=== PATIENT | female | born 1960 | race Caucasian/White ===

== ENCOUNTER 2017-08-21 10:58 | Inpatient (IN) | payer BC ==
[~2017-08-21] VITALS: Ht 154.9 cm; Wt 102.8 kg
[2017-08-21 12:03] LABS: HEMOGLOBIN 13.1 G/DL (11.9-15.5); MCH 31.5 PG (29.0-34.0); MCHC 32.8 G/DL (30.0-36.0); MCV 96.2 FL (83-99); PLATELET COUNT 214 K/uL (156-360); RBC DIS.WIDTH-CV 13.2 % (11.8-14.6); RBC DIS.WIDTH-SD 46.9 % (39-53); RED BLOOD COUNT 4.16 M/uL (3.80-5.20); WHITE BLOOD COUNT 11.6 K/uL (4.1-10.2)
[2017-08-21 12:17] LABS: ALBUMIN 3.5 g/dL (3.2-4.8); CHLORIDE 103 mEq/L (99-109); POTASSIUM 4.1 mEq/L (3.7-5.4); SODIUM 137 mEq/L (136-147)
[2017-08-21 12:19] LABS: GLUCOSE 121 mg/dL (70-99); TOTAL PROTEIN 6.5 g/dL (6.4-8.3)
[2017-08-21 12:21] LABS: TOTAL BILIRUBIN 0.6 mg/dL (0.0-1.0)
[2017-08-21 12:23] LABS: ALKALINE PHOSPHATASE 78 IU/L (3-129); CREATININE 1.5 mg/dL (0.6-1.3); GFR ESTIMATE (CALCULATED) 38 mL/min/
[2017-08-21 12:24] LABS: UREA NITROGEN (BUN) 11 mg/dL (9-23)
[2017-08-21 12:25] LABS: AST (GOT) 28 IU/L (2-34); TROP-I INTERPRETATION NEGATIVE; TROPONIN-I < 0.01 ng/mL (0.0-0.30)
[2017-08-21 12:26] LABS: ALT (GPT) 28 IU/L (3-49); LIPASE 8 U/L (1.0-51.0)
[2017-08-21] MEDS ORDERED: CELECOXIB200 MG PO (15:04)
[2017-08-21] MEDS ORDERED: OMEPRAZOLE40 M1 PO (15:05)
[2017-08-21] MEDS ORDERED: GABAPENTIN400 MG PO (15:08)
[2017-08-21] MEDS ORDERED: CHLORZOXAZONE500 MG PO (15:10)
[2017-08-21] MEDS ORDERED: VOLTAREN 1% GE100 GM TP (15:13)
[2017-08-21] MEDS ORDERED: TIROSINT125 MCG PO (15:14)
[2017-08-21] MEDS ORDERED: ADVAIR 500/501 DISK IH (15:18)
[2017-08-21] MEDS ORDERED: ESTRADIOL1 EA14 TD (15:18)
[2017-08-21] MEDS ORDERED: BUPROPION XL150 MG PO (15:18)
[2017-08-21] MEDS ORDERED: PROAIR HFA8.5 GM IH (15:19)
[2017-08-21] MEDS ORDERED: MONTELUKAST SOD10 MG PO (15:19)
[2017-08-21] MEDS ORDERED: FEXOFENADINE H180 MG PO (15:20)
[2017-08-21] MEDS ORDERED: NASACORT10.8 ML BOTH NARES (15:20)
[2017-08-21] MEDS ORDERED: CALCIUM 600 +1 EAC2 PO (15:21)
[2017-08-21] MEDS ORDERED: SYSTANE ULTRA 015 ML BOTH EYES (15:21)
[2017-08-21] MEDS ORDERED: CENTRUM WOMEN1 EACH PO (15:21)
[2017-08-21] MEDS ORDERED: MAGNESIUM400 M1 PO (15:22)
[2017-08-21] MEDS ORDERED: L-GLUTAMINE500 M5 PO (15:22)
[2017-08-21] MEDS ORDERED: ADVANCED PROBI625 MG PO (15:22)
[2017-08-21] MEDS ORDERED: CO Q-10100 MG PO (15:24)
[2017-08-21] MEDS ORDERED: OMEGA 3-6-9 11200 MG PO (15:25)
[2017-08-21] MEDS ORDERED: FLAX OIL1000 MG PO (15:26)
[2017-08-21] MEDS ORDERED: 5-HTP100 MG PO (15:26)
[2017-08-21] MEDS ORDERED: CINNAMON PLUS1 EACH PO (15:27)
[2017-08-21 21:05] VITALS: BP 134/89
[2017-08-21 21:14] VITALS: BP 134/89
[2017-08-21 22:00] VITALS: BP 143/76
[2017-08-21 22:34] LABS: APPEARANCE SL.HAZY ((CLEAR)); BILIRUBIN NEGATIVE; BLOOD NEGATIVE; COLOR YELLOW ((YELLOW)); GLUCOSE (STRIP) NEGATIVE; KETONES NEGATIVE; LEUKOCYTES NEGATIVE; NITRITE NEGATIVE; PROTEIN (STRIP) NEGATIVE; SPECIFIC GRAVITY 1.038 (1.000-1.030); UROBILINOGEN 0.2 MG/DL (0.2-1.0)
[2017-08-21 22:40] LABS: BACTERIA RARE /HPF; EPITHELIAL CELLS RARE /HPF; HYALINE CASTS 15-20 /LPF; MUCUS TRACE /LPF; UCUL ADDED? NO; WHITE BLOOD CELLS 0-5 /HPF (0-5)
[2017-08-21 23:00] VITALS: BP 127/67
[2017-08-22] VITALS (20 sets, daily range): BP systolic 109–147; BP diastolic 64–94
[2017-08-22 04:54] LABS: HEMATOCRIT 35.7 % (36.0-46.0); HEMOGLOBIN 11.7 G/DL (11.9-15.5); MCH 31.6 PG (29.0-34.0); MCHC 32.8 G/DL (30.0-36.0); MCV 96.5 FL (83-99); PLATELET COUNT 206 K/uL (156-360); RBC DIS.WIDTH-CV 13.8 % (11.8-14.6); RBC DIS.WIDTH-SD 49.1 % (39-53)
[2017-08-22 05:25] LABS: CHLORIDE 106 mEq/L (99-109); POTASSIUM 4.1 mEq/L (3.7-5.4); SODIUM 137 mEq/L (136-147)
[2017-08-22 05:26] LABS: GLUCOSE 118 mg/dL (70-99)
[2017-08-22 05:30] LABS: GFR ESTIMATE (CALCULATED) > 59 mL/min/
[2017-08-22 05:31] LABS: UREA NITROGEN (BUN) 11 mg/dL (9-23)
[2017-08-23] VITALS (13 sets, daily range): BP systolic 125–166; BP diastolic 73–93
[2017-08-24 03:50] VITALS: BP 120/70
[2017-08-24 06:34] LABS: HEMATOCRIT 35.9 % (36.0-46.0); HEMOGLOBIN 11.5 G/DL (11.9-15.5); MCH 30.7 PG (29.0-34.0); MCV 95.7 FL (83-99); PLATELET COUNT 221 K/uL (156-360); RBC DIS.WIDTH-CV 13.2 % (11.8-14.6); RBC DIS.WIDTH-SD 46.5 % (39-53); RED BLOOD COUNT 3.75 M/uL (3.80-5.20); WHITE BLOOD COUNT 9.4 K/uL (4.1-10.2)
[2017-08-24 06:52] LABS: CHLORIDE 99 MEQ/L (99-109); CREATININE 0.8 MG/DL (0.6-1.3); GFR ESTIMATE (CALCULATED) > 59 mL/min/; GLUCOSE 142 mg/dL (70-99); MAGNESIUM 1.5 mg/dl (1.3-2.7); SODIUM 138 MEQ/L (136-147); UREA NITROGEN (BUN) 8 mg/dL (9-23)
[2017-08-24 08:21] VITALS: BP 141/72
[2017-08-24 11:28] VITALS: BP 191/91
[2017-08-24 15:49] VITALS: BP 130/90
[2017-08-24 16:16] LABS: TROP-I INTERPRETATION NEGATIVE; TROPONIN-I 0.05 ng/mL (0.0-0.30)
[2017-08-24 19:29] VITALS: BP 119/68
[2017-08-24 21:56] LABS: TROP-I INTERPRETATION NEGATIVE; TROPONIN-I 0.05 ng/mL (0.0-0.30)
[2017-08-24 23:37] VITALS: BP 135/73
[2017-08-25 03:43] VITALS: BP 124/76
[2017-08-25 07:25] VITALS: BP 134/73
[2017-08-25 12:14] VITALS: BP 136/72
[2017-08-25 20:16] VITALS: BP 143/81
[2017-08-26 00:36] VITALS: BP 117/69
[2017-08-26 03:57] VITALS: BP 141/68
[2017-08-26 04:47] LABS: HEMATOCRIT 31.5 % (36.0-46.0); HEMOGLOBIN 10.8 G/DL (11.9-15.5); MCH 32.1 PG (29.0-34.0); MCHC 34.3 G/DL (30.0-36.0); MCV 93.8 FL (83-99); PLATELET COUNT 231 K/uL (156-360); RBC DIS.WIDTH-CV 12.8 % (11.8-14.6); RBC DIS.WIDTH-SD 44.2 % (39-53); RED BLOOD COUNT 3.36 M/uL (3.80-5.20); WHITE BLOOD COUNT 9.8 K/uL (4.1-10.2)
[2017-08-26 07:57] VITALS: BP 122/67
[2017-08-26 15:18] VITALS: BP 131/65
[2017-08-26 19:09] VITALS: BP 141/91
[2017-08-26 23:56] VITALS: BP 132/65
[2017-08-27 04:58] VITALS: BP 121/65
[2017-08-27 08:39] VITALS: BP 136/68
[2017-08-27 16:23] VITALS: BP 156/76
[2017-08-27 20:43] VITALS: BP 140/82
[2017-08-28] VITALS (7 sets, daily range): BP systolic 122–162; BP diastolic 63–83
[2017-08-28 10:26] LABS: HEMATOCRIT 34.7 % (36.0-46.0); HEMOGLOBIN 11.6 G/DL (11.9-15.5); MCH 31.8 PG (29.0-34.0); MCHC 33.4 G/DL (30.0-36.0); MCV 95.1 FL (83-99); RBC DIS.WIDTH-CV 12.9 % (11.8-14.6); RBC DIS.WIDTH-SD 45.1 % (39-53); RED BLOOD COUNT 3.65 M/uL (3.80-5.20); WHITE BLOOD COUNT 12.1 K/uL (4.1-10.2)
[2017-08-28 10:38] LABS: CREATININE 0.7 MG/DL (0.6-1.3); GFR ESTIMATE (CALCULATED) > 59 mL/min/; GLUCOSE 191 mg/dL (70-99); POTASSIUM 4.5 MEQ/L (3.7-5.4); UREA NITROGEN (BUN) 14 mg/dL (9-23)
[2017-08-28 10:45] LABS: CHLORIDE 88 MEQ/L (99-109); SODIUM 130 MEQ/L (136-147)
[2017-08-28 11:02] LABS: PLATELET COUNT 400 K/uL (156-360)
[2017-08-29 03:24] VITALS: BP 132/77
[2017-08-29 07:49] VITALS: BP 106/57
[2017-08-29 09:22] LABS: HEMATOCRIT 34.6 % (36.0-46.0); HEMOGLOBIN 11.4 G/DL (11.9-15.5); MCH 31.4 PG (29.0-34.0); MCHC 32.9 G/DL (30.0-36.0); MCV 95.3 FL (83-99); PLATELET COUNT 423 K/uL (156-360); RBC DIS.WIDTH-SD 45.3 % (39-53); RED BLOOD COUNT 3.63 M/uL (3.80-5.20); WHITE BLOOD COUNT 11.3 K/uL (4.1-10.2)
[2017-08-29 09:44] LABS: CHLORIDE 94 MEQ/L (99-109); CREATININE 0.8 MG/DL (0.6-1.3); GFR ESTIMATE (CALCULATED) > 59 mL/min/; GLUCOSE 207 mg/dL (70-99); POTASSIUM 4.2 MEQ/L (3.7-5.4); SODIUM 136 MEQ/L (136-147); UREA NITROGEN (BUN) 14 mg/dL (9-23)
[2017-08-29 11:51] VITALS: BP 125/67
[2017-08-29 15:36] VITALS: BP 138/74
[2017-08-29 19:45] VITALS: BP 165/76
[2017-08-30] VITALS (7 sets, daily range): BP systolic 119–138; BP diastolic 61–82
[2017-08-30 08:14] LABS: CHLORIDE 92 MEQ/L (99-109); CREATININE 0.7 MG/DL (0.6-1.3); GFR ESTIMATE (CALCULATED) > 59 mL/min/; GLUCOSE 166 mg/dL (70-99); POTASSIUM 4.5 MEQ/L (3.7-5.4); SODIUM 134 MEQ/L (136-147); UREA NITROGEN (BUN) 12 mg/dL (9-23)
[2017-08-31 04:00] VITALS: BP 132/64
[2017-08-31 08:14] VITALS: BP 145/69
[2017-08-31 09:17] LABS: HEMATOCRIT 37.1 % (36.0-46.0); HEMOGLOBIN 12.1 G/DL (11.9-15.5); MCH 31.2 PG (29.0-34.0); MCHC 32.6 G/DL (30.0-36.0); MCV 95.6 FL (83-99); PLATELET COUNT 496 K/uL (156-360); RBC DIS.WIDTH-CV 13.2 % (11.8-14.6); RBC DIS.WIDTH-SD 45.8 % (39-53); RED BLOOD COUNT 3.88 M/uL (3.80-5.20); WHITE BLOOD COUNT 15.9 K/uL (4.1-10.2)
[2017-08-31 09:52] LABS: CHLORIDE 93 MEQ/L (99-109); CREATININE 0.7 MG/DL (0.6-1.3); GFR ESTIMATE (CALCULATED) > 59 mL/min/; GLUCOSE 162 mg/dL (70-99); POTASSIUM 4.2 MEQ/L (3.7-5.4); SODIUM 134 MEQ/L (136-147); UREA NITROGEN (BUN) 9 mg/dL (9-23)
[2017-08-31 11:49] VITALS: BP 142/63
[2017-08-31 15:35] VITALS: BP 149/70
[2017-08-31 20:16] VITALS: BP 168/83
[2017-08-31 23:41] VITALS: BP 145/84
[2017-09-01 04:30] VITALS: BP 135/81
[2017-09-01 08:16] VITALS: BP 159/79
[2017-09-01 11:08] VITALS: BP 149/71
[2017-09-01 12:47] LABS: CHLORIDE 91 MEQ/L (99-109); CREATININE 0.7 MG/DL (0.6-1.3); GFR ESTIMATE (CALCULATED) > 59 mL/min/; GLUCOSE 144 mg/dL (70-99); POTASSIUM 4.5 MEQ/L (3.7-5.4); SODIUM 132 MEQ/L (136-147); UREA NITROGEN (BUN) 10 mg/dL (9-23)
[2017-09-01 17:45] VITALS: BP 157/84
[2017-09-01 20:15] VITALS: BP 136/76
[2017-09-02 04:57] VITALS: BP 121/74
[2017-09-02 06:00] LABS: BASOPHIL (%) 0.2 % (0-1); EOSINOPHIL (%) 0.2 % (0-5); HEMATOCRIT 35.4 % (36.0-46.0); HEMOGLOBIN 11.6 G/DL (11.9-15.5); IMMATURE GRANULOCYTE (%) 1.4 % (0.0-0.7); LYMPHOCYTE (%) 17.6 % (15-42); LYMPHOCYTE COUNT 2.2 K/uL (1.0-2.8); MCH 31.7 PG (29.0-34.0); MCHC 32.8 G/DL (30.0-36.0); MCV 96.7 FL (83-99); MONOCYTE (%) 7.8 % (3-12); NEUTROPHIL (%) 72.8 % (45-76); NEUTROPHIL COUNT 9.1 K/uL (1.8-6.4); PLATELET COUNT 463 K/uL (156-360); RBC DIS.WIDTH-CV 13.2 % (11.8-14.6); RBC DIS.WIDTH-SD 46.6 % (39-53); RED BLOOD COUNT 3.66 M/uL (3.80-5.20); WHITE BLOOD COUNT 12.5 K/uL (4.1-10.2)
[2017-09-02 06:30] LABS: CHLORIDE 94 MEQ/L (99-109); CREATININE 0.9 MG/DL (0.6-1.3); GFR ESTIMATE (CALCULATED) > 59 mL/min/; GLUCOSE 197 mg/dL (70-99); POTASSIUM 5.1 MEQ/L (3.7-5.4); SODIUM 134 MEQ/L (136-147); UREA NITROGEN (BUN) 14 mg/dL (9-23)
[2017-09-02 08:08] VITALS: BP 137/95
[2017-09-02 11:11] VITALS: BP 132/69
[2017-09-02 16:17] VITALS: BP 129/66
[2017-09-02] MEDS ORDERED: ZOLPIDEM TARTRAT5 MG PO (16:42)
[2017-09-02] MEDS ORDERED: BENZONATATE100 MG PO (16:42)
[2017-09-02] MEDS ORDERED: SORE THROAT LO1 EAC3 MM (16:42)
[2017-09-02] MEDS ORDERED: DUONEB 2.5-0.5 M3 ML AEROSOL ×2 (16:42)
[2017-09-02] MEDS ORDERED: HYDROCODON-ACE1 EAC7 PO (16:42)
[2017-09-02] MEDS ORDERED: MUCINEX600 MG PO (16:42)
[2017-09-02] MEDS ORDERED: Salonpas 4% Patch TD (16:42)
[2017-09-02] MEDS ORDERED: PREDNISONE20 MG PO (16:42)
[2017-09-02] MEDS ORDERED: SPIRIVA RESPIMAT4 GM IH (16:42)
== END 2017-09-02 19:27 | DRG 871 ==
LOC: EME 10:58 → EDOF 16:46 → 4WEST 16:46 → 3EAST 16:46 → ENRESERV 16:47 → 4WEST 20:56 → ENRESERV 08-23 12:09 → 3EAST 08-23 15:08
PROVIDERS: Hospitalist; Internal Medicine; Physician Assistant; Surgery
PROC: 02HV33Z Insertion of Infusion Device into Superior Vena Cava, Percutaneous Approach (ICD-10-PCS; principal; 2017-08-21)
DX: A41.01 Sepsis due to Methicillin susceptible Staphylococcus aureus (principal); R65.21 Severe sepsis with septic shock; J15.211 Pneumonia due to Methicillin susceptible Staphylococcus aureus; J96.01 Acute respiratory failure with hypoxia; J45.31 Mild persistent asthma with (acute) exacerbation; Q79.6 Ehlers-Danlos syndromes; M41.9 Scoliosis, unspecified; K58.0 Irritable bowel syndrome with diarrhea; E03.9 Hypothyroidism, unspecified; N28.9 Disorder of kidney and ureter, unspecified; F32.9 Major depressive disorder, single episode, unspecified; F41.9 Anxiety disorder, unspecified
CPT/HCPCS: 71010; 71045; 71046; 71275; 76937; 80048; 80053; 81003; 82948; 83605; 83690; 83735; 83880; 84484; 85025; 85027; 85379; 87040; 87070; 87077; 87186; 87205; 87502; 87641; 87801; 93005; 94010; 94640; 94640 76; 94799; 97530 GO; 99202; 99281; 99285; C1751; C1894; J0456; J0690; J0696; J1644; J1885; J2270; J2405; J2920; J3370; J7512; S0028